=== PATIENT | female | born 1965 | race Caucasian/White ===

== ENCOUNTER 2020-06-08 11:00 | Emergency (ER) | payer OTHER ==
[~2020-06-08] VITALS: Ht 162.6 cm; Wt 102.5 kg
[2020-06-08 11:19] VITALS: Ht 162.6 cm; Wt 102.5 kg
[2020-06-08 13:19] LABS: BASOPHIL % 0.6 % (0-2); PLATELET COUNT 195 x10^3mcL (130-400); RED CELL DISTRIBUTION WIDTH 13.5 % (11.5-14.5)
[2020-06-08 13:33] LABS: CALCIUM 9.1 mg/dL (8.5-10.1); CARBON DIOXIDE 37.8 mmol/L (21-32); CHLORIDE SERUM 101 mmol/L (98-107); CREATININE SERUM 0.7 mg/dL (0.6-1.0); GFR1 > 60 mL/min; GLUCOSE SERUM 96 mg/dL (74-106); POTASSIUM SERUM 3.9 mmol/L (3.5-5.1); SODIUM SERUM 139 mmol/L (136-145)
[2020-06-08 13:38] LABS: ALBUMIN 3.8 g/dL (3.4-5.0); ALKALINE PHOSPHATASE 91 U/L (46-116); ALT/SGPT 32 U/L (14-59); AST/SGOT 23 U/L (15-37); BILIRUBIN TOTAL 0.5 mg/dL (0.20-1.00); TOTAL PROTEIN, SERUM 7.7 g/dL (6.4-8.2)
[2020-06-08 13:48] VITALS: BP 171/96
== END 2020-06-08 13:48 | disposition home or self-care (01) ==
LOC: ED 11:00
PROVIDERS: Emergency Medicine
DX: F41.9 Anxiety disorder, unspecified (principal)
CPT/HCPCS: Q0092